=== PATIENT | female | born 1980 | race Caucasian/White ===

== ENCOUNTER 2017-01-30 13:27 | Emergency (ER) | payer OTHER ==
[2017-01-30 13:42] VITALS: BP 117/72
--- NOTE | 2017-01-30 14:30 | UC ---
Skin Complaint HPI - HPI Summary HPI Summary: MILDLY ITCHY RASH ON ARMS NECK AND TORSO. ONE POSSIBLE AREA ON LEFT LEG. HAS HAD RASH FOR ONE WEEK. HAS TRIED TO TREAT RASH WITH OTC HYDROCORTISONE WITHOUT DRAMATIC IMPROVEMENT. NO FEVER. NO INSECT BITES. NON TENDER. NO OTHER PEOPLE IN HOUSE HAVE RASHES. - History of Current Complaint Chief Complaint: UCRash Time Seen by Provider: 01/30/17 13:38 Stated Complaint: RASH Hx Obtained From: Patient Hx Last Menstrual Period: 01/06/17 Onset/Duration: Gradual Onset, Lasting Weeks, Still Present Skin Exposure Onset/Duration: Weeks Ago Onset Severity: Mild Current Severity: Mild Pain Intensity: 0 Pain Scale Used: 0-10 Numeric Location: Diffuse - BILAT ARMS NECK AND TORSO Character: Pruritus, Hives, Redness Aggravating: Touch Alleviating: Nothing Associated Signs & Symptoms: Positive: Rash. Negative: Fever, Chills, Hoarseness, Throat Tightening, Syncope, Drainage, Bruising, Tenderness, Red Streaks Related History: Possible Reaction to: Environmental Exposure - Allergy/Home Medications Allergies/Adverse Reactions: Allergies Allergy/AdvReac Type Severity Reaction Status Date / Time No Known Allergies Allergy Verified 01/30/17 13:42 Review of Systems Constitutional: Negative Skin: Rash Eyes: Negative ENT: Negative Respiratory: Negative Cardiovascular: Negative Gastrointestinal: Negative Genitourinary: Negative Motor: Negative Neurovascular: Negative Musculoskeletal: Negative Neurological: Negative Psychological: Negative All Other Systems Reviewed And Are Negative: Yes PMH/Surg Hx/FS Hx/Imm Hx Previously Healthy: Yes Respiratory History Of: Denies: Asthma Psychological History Of: Reports: Anxiety, Depression - Pt was on Cymbalta until she found out that she was - Surgical History Surgical History: Yes Surgery Procedure, Year, and Place: CYST REMOVED FROM NECK 2004 - Family History Known Family History: Negative: Blood Disorder - Social History Occupation: Employed Full-time Lives: With Family Alcohol Use: Rare Substance Use Type: None Smoking Status (MU): Never Smoked Tobacco Have You Smoked in the Last Year: No - Immunization History Most Recent Influenza Vaccination: 06/2014 Most Recent Tetanus Shot: 10/04/14 Most Recent Pneumonia Vaccination: never Physical Exam Triage Information Reviewed: Yes Appearance: Well-Appearing, No Pain Distress, Well-Nourished Vital Signs: Initial Vital Signs Temp 98.6 F 01/30/17 13:38 Pulse 74 01/30/17 13:38 Resp 16 01/30/17 13:38 BP 117/72 01/30/17 13:38 Pulse Ox 99 01/30/17 13:38 Vital Signs Reviewed: Yes Eye Exam: Normal ENT Exam: Normal ENT: Positive: Normal ENT inspection, Hearing grossly normal, Pharynx normal, TMs normal Dental Exam: Normal Neck exam: Normal Respiratory Exam: Normal Respiratory: Positive: Chest non-tender, Lungs clear, Normal breath sounds, No respiratory distress, No accessory muscle use Cardiovascular Exam: Normal Cardiovascular: Positive: RRR, No Murmur Abdominal Exam: Normal Abdomen Description: Positive: Nontender, No Organomegaly Musculoskeletal Exam: Normal Musculoskeletal: Positive: Strength Intact, ROM Intact Neurological Exam: Normal Psychological Exam: Normal Skin: Positive: rashes Course/Dx - Differential Diagnoses - Skin Complaint Differential Diagnoses: Allergic Reaction, Contact Dermatitis, Drug Rash, Eczema , Impetigo, Local Allergic Reaction, Scabies, Tinea - Diagnoses Provider Diagnoses: CONTACT DERMATITIS Discharge - Discharge Plan Condition: Stable Disposition: HOME Prescriptions: predniSONE TAB* [Deltasone TAB*] 10 mg PO DAILY #28 tab Patient Education Materials: Contact Dermatitis (ED) Referrals: Regi Alatorre NP [Primary Care Provider] -
== END 2017-01-30 14:16 | disposition home or self-care (01) ==
LOC: UCEAST 13:27
DX: L25.9 Unspecified contact dermatitis, unspecified cause (principal)
CPT/HCPCS: 99212; G0463

== ENCOUNTER 2017-08-24 14:09 | Emergency (ER) | payer OTHER ==
[2017-08-24 14:34] VITALS: BP 137/73
--- NOTE | 2017-08-24 14:59 | UC ---
Complaint Female HPI - HPI Summary HPI Summary: concerned she may have a tampon she cannot get out - History Of Current Complaint Chief Complaint: UCGU Stated Complaint: PERSONAL Time Seen by Provider: 08/24/17 14:57 Hx Obtained From: Patient Hx Last Menstrual Period: 01/06/17 ?: No Onset/Duration: Sudden Onset, Lasting Days - 2 Timing: Constant Severity Currently: None Aggravating Factor(s): Nothing Alleviating Factor(s): Nothing Associated Signs And Symptoms: Positive: Negative - Allergies/Home Medications Allergies/Adverse Reactions: Allergies Allergy/AdvReac Type Severity Reaction Status Date / Time No Known Allergies Allergy Verified 05/22/17 13:41 PMH/Surg Hx/FS Hx/Imm Hx Previously Healthy: No GI/ History: Other Other GI/ History: Crohns - Surgical History Surgical History: Yes Surgery Procedure, Year, and Place: CYST REMOVED FROM NECK 2004 - Family History Known Family History: Positive: None Negative: Blood Disorder - Social History Occupation: Employed Full-time Lives: With Family Alcohol Use: Weekly Substance Use Type: None Smoking Status (MU): Never Smoked Tobacco Have You Smoked in the Last Year: No - Immunization History Most Recent Influenza Vaccination: 06/2014 Most Recent Tetanus Shot: 10/04/14 Most Recent Pneumonia Vaccination: never Review of Systems Constitutional: Negative Skin: Negative Eyes: Negative ENT: Negative Respiratory: Negative Cardiovascular: Negative Gastrointestinal: Negative Genitourinary: Negative, Other - Concerned she may have retained tampon Motor: Negative Neurovascular: Negative Musculoskeletal: Negative Neurological: Negative Psychological: Negative Is Patient Immunocompromised?: No All Other Systems Reviewed And Are Negative: Yes Physical Exam Triage Information Reviewed: Yes Appearance: Well-Appearing, No Pain Distress, Well-Nourished Vital Signs: Initial Vital Signs Temp 98.4 F 08/24/17 14:27 Pulse 70 08/24/17 14:27 Resp 18 08/24/17 14:27 BP 137/73 08/24/17 14:27 Pulse Ox 100 08/24/17 14:27 Vital Signs Reviewed: Yes Eye Exam: Normal Eyes: Positive: Conjunctiva Clear ENT Exam: Normal ENT: Positive: Normal ENT inspection, Hearing grossly normal. Negative: Nasal drainage, Trismus, Muffled voice, Hoarse voice Dental Exam: Normal Neck exam: Normal Neck: Positive: 1 Respiratory Exam: Normal Respiratory: Positive: No respiratory distress, No accessory muscle use Cardiovascular Exam: Normal Cardiovascular: Positive: Brisk Capillary Refill Abdominal Exam: Normal Musculoskeletal Exam: Normal Musculoskeletal: Positive: Strength Intact, ROM Intact, No Edema Neurological Exam: Normal Neurological: Positive: Alert, Muscle Tone Normal Psychological Exam: Normal Skin Exam: Normal Re-Evaluation - Re-Evaluation First Eval Change: Unchanged - tolerated exam well no fb noted Complaint Female Dx - Course Course Of Treatment: follow with pcp prn - Differential Dx/Diagnosis Provider Diagnoses: normal vaginal exam Discharge - Discharge Plan Condition: Stable Disposition: HOME Referrals: Regi Alatorre NP [Primary Care Provider] - If Needed
== END 2017-08-24 15:16 | disposition home or self-care (01) ==
LOC: UCEAST 14:09
DX: Z04.8 Encounter for examination and observation for other specified reasons (principal)
CPT/HCPCS: 99212; G0463

== ENCOUNTER 2017-12-06 11:38 | Emergency (ER) | payer BC ==
[2017-12-06 11:47] VITALS: BP 138/98
--- NOTE | 2017-12-06 12:46 | UC ---
Corby Tavarez Jason, scribed for [facility] MD on 12/06/17 at 1223 . Complaint Female HPI - HPI Summary HPI Summary: In Room Note: This patient is a 37 year old F presenting to [facility] with a chief complaint of burning with urination since 3 days ago. The patient rates the pain 0/10 in severity. Symptoms aggravated by urination. Symptoms alleviated by nothing. Patient states that she last had a UTI a long time ago when she used to have them frequently. Physicians Note: Vital signs stable. Temperature is 99.7. BP 139/98. Patient is not on anti- hypertensive treatment. Pulse ox 100. Pt is positive for Chrons disease, depression, anxiety. Visit History: multiple visits for Chrons disease. Patient has also requested the removal of a ring. The ring was removed using a string method by a nurse. Nurses Note: pt c/o burning with void and frequency that started or thursday. pt is her also for a ring to be cut off. - History Of Current Complaint Chief Complaint: UCGU Stated Complaint: URINARY COMPLAINT, RING REMOVAL Time Seen by Provider: 12/06/17 12:08 Hx Obtained From: Patient Hx Last Menstrual Period: 11/12/17 Onset/Duration: Gradual Onset, Lasting Days - 3 days ago, Still Present Pain Intensity: 0 Pain Scale Used: 0-10 Numeric Character: Burning Aggravating Factor(s): Urination Alleviating Factor(s): Nothing - Allergies/Home Medications Allergies/Adverse Reactions: Allergies Allergy/AdvReac Type Severity Reaction Status Date / Time No Known Allergies Allergy Verified 12/06/17 11:47 Home Medications: Home Medications ALPRAZolam [Xanax] 0.25 mg PO 12/06/17 [History] Duloxetine HCl [Cymbalta] 80 mg PO 12/06/17 [History] PMH/Surg Hx/FS Hx/Imm Hx - Additional Past Medical History Additional PMH: Non contributory to present complaint. Previously Healthy: Yes GI/ History: Other Other GI/ History: Chron's disease Psychological History: Anxiety, Depression - Surgical History Surgical History: Yes Surgery Procedure, Year, and Place: CYST REMOVED FROM NECK 2004 - Family History Known Family History: Positive: Cardiac Disease - in mothers side, Other - cancer in dad's side Negative: Blood Disorder - Social History Occupation: Employed Full-time Alcohol Use: Daily Substance Use Type: Marijuana Substance Use Comment - Amount & Last Used: daily Smoking Status (MU): Never Smoked Tobacco Have You Smoked in the Last Year: No - Immunization History Most Recent Influenza Vaccination: 06/2014 Most Recent Tetanus Shot: 10/04/14 Most Recent Pneumonia Vaccination: never Review of Systems Constitutional: Negative - fever Genitourinary: Dysuria All Other Systems Reviewed And Are Negative: Yes Physical Exam - Summary Physical Exam Summary: Appearance: The patient is well-appearing, is in no pain distress, and is well- nourished. Eyes: Conjunctiva are clear. ENT: The hearing is grossly normal, the pharynx is normal, and the TMs are normal. There is no muffled or hoarse voice. Neck: The neck is supple and there is no lymphadenopathy. Respiratory: The chest is nontender. The lungs are clear, there are normal breath sounds, and there is no respiratory distress. Cardiovascular: Heart is regular rate and rhythm. There is no murmur. Abdomen: The abdomen is soft and nontender. There is no organomegaly. Bowel sounds: present Musculoskeletal: Strength is intact. The patient moves all extremities. Left fourth finger shows an indentation where the ring was removed. Following removal there is no limitation or abnormality in circulation, motor, or sensory. Neurological: The patient is alert. Psychological: The patient displays age appropriate behavior Skin: Negative for rashes Triage Information Reviewed: Yes Vital Signs: Initial Vital Signs Temp 99.7 F 12/06/17 11:44 Pulse 97 12/06/17 11:44 Resp 18 12/06/17 11:44 BP 138/98 12/06/17 11:44 Pulse Ox 100 12/06/17 11:44 Vital Signs Reviewed: Yes Complaint Female Dx - Course Course Of Treatment: Pt is a healthy 37 year old female with dysuria. I will treat the patient with macrodantin and pyridium. Diagnosis is a Urinary tract infection. Hypertensive BP reading (138/98); patient referred to PCP within 1 day - 4 weeks for follow up. Patient has been given an antibiotic because findings on physical examination and health history. The risks and benefits of antibiotic treatment have been discussed and patient has voiced understanding of these risks including the possibility of developing clostridium difficile enterocolitis. Medications have been included in the original chart and reviewed. - Differential Dx/Diagnosis Provider Diagnoses: Urinary Tract infection. Tight ring removed from left 4th finger by nurse. Discharge - Sign-Out/Discharge Documenting (check all that apply): Discharge - Discharge Plan Condition: Stable Disposition: [facility] Prescriptions: Nitrofurantoin Macrocrystals* [Macrodantin*] 100 mg PO BID 5 Days #10 cap MDD 2 Phenazopyridine TAB* [Pyridium TAB*] 200 mdi PO TID #6 tab Patient Education Materials: Phenazopyridine (By mouth), Urinary Tract Infection in Women (ED) Referrals: Regi Alatorre NP [Primary Care Provider] - Additional Instructions: Your blood pressure reading today was 139/98, indicating HYPERTENSION. Follow- up with your primary care provider within 4 weeks for blood pressure readings and further evaluation. PLEASE SEEK CARE AT THE EMERGENCY DEPARTMENT IF SYMPTOMS WORSEN OR IF NEW SYMPTOMS DEVELOP. FOLLOW UP WITH YOUR PRIMARY CARE PHYSICIAN WE DISCUSSED: 1. Your symptoms and urine test show a urinary tract infection. 2. Start Macrodantin, one pill, twice a day and Pyridium for discomfort. 3. Call us if you are not feeling better in 36 hours. 4. Re check at any time for increased pain, temperature, difficulty urinating. - Billing Disposition and Condition Condition: STABLE Disposition: EMTALA The documentation as recorded by the Corby elizondo Jason accurately reflects the service I personally performed and the decisions made by me, Daniel Whaley MD.
== END 2017-12-06 12:55 | disposition home or self-care (01) ==
LOC: UCEAST 11:38
DX: N39.0 Urinary tract infection, site not specified (principal); B96.20 Unspecified Escherichia coli [E. coli] as the cause of diseases classified elsewhere; Z87.440 Personal history of urinary (tract) infections; M79.89 Other specified soft tissue disorders; K50.90 Crohn's disease, unspecified, without complications; F41.9 Anxiety disorder, unspecified; F32.9 Major depressive disorder, single episode, unspecified
CPT/HCPCS: 81003; 87077; 87086; 87186; 99212; G0463

== ENCOUNTER 2019-08-19 09:45 | Observation (INO) | payer BC ==
--- NOTE | 2019-08-19 10:04 | ED ---
Skin Complaint - HPI Summary HPI Summary: This pt is a 39 y/o female presenting to [facility] c/o worsening pain to left buttock. Pt states her pain began about 1 week ago on her left buttock. She reports her pain has been progressively worsening over the last few days. Pt went to her PCP at [facility] yesterday where she was diagnosed with an abscess and was started on Clindamycin. Patient presents to triage with a temperature of 99.8F. She denies any other symptoms. She rates her pain 10/10 in severity and is tearful at bedside. PMHx: Crohn's disease. - History of Current Complaint Chief Complaint: EDRashSkinAbscess Time Seen by Provider: 08/19/19 09:58 Stated Complaint: ABSCESS PER PT Hx Obtained From: Patient Hx Last Menstrual Period: 11/12/17 Onset/Duration: Started Weeks Ago - 1, Still Present Skin Exposure Onset/Duration: Worse Since: - the last few days Timing: Lasting Days Current Severity: Severe Pain Intensity: 10 Pain Scale Used: 0-10 Numeric Skin Location: Other: - left buttock Character: Pain Aggravating Symptom(s): Nothing Alleviating Symptom(s): Nothing Associated Signs & Symptoms: Fever - low temp Related History: Other: - currently on Clindamycin - Allergy/Home Medications Allergies/Adverse Reactions: Allergies Allergy/AdvReac Type Severity Reaction Status Date / Time No Known Allergies Allergy Verified 01/31/19 09:43 Home Medications: Home Medications L.acidoph,Paracasei, B.lactis [Probiotic] 1 each PO DAILY 08/19/19 [History Confirmed 08/19/19] PMH/Surg Hx/FS Hx/Imm Hx Endocrine/Hematology History: Denies: Hx Diabetes Cardiovascular History: Denies: Hx Hypertension Respiratory History: Denies: Hx Asthma GI History: Reports: Hx Crohn's Disease History: Denies: Hx Renal Disease Sensory History: Reports: Hx Contacts or Glasses - WEARS GLASSES Opthamlomology History: Reports: Hx Contacts or Glasses - WEARS GLASSES Neurological History: Denies: Other Neuro Impairments/Disorders Psychiatric History: Reports: Hx Anxiety, Hx Depression - Pt was on Cymbalta until she found out that she was - Surgical History Surgery Procedure, Year, and Place: CYST REMOVED FROM NECK 2004 Hx Anesthesia Reactions: No Infectious Disease History: No Infectious Disease History: Denies: Traveled Outside the [place] in Last 30 Days - Family History Known Family History: Positive: Cardiac Disease - in mothers side, Other - cancer in dad's side Negative: Blood Disorder - Social History Alcohol Use: None Substance Use Type: Reports: None Substance Use Comment - Amount & Last Used: daily Smoking Status (MU): Never Smoked Tobacco Have You Smoked in the Last Year: No Review of Systems Positive: Fever - low temp Cardiovascular: Negative Respiratory: Negative Gastrointestinal: Negative Skin: Other - POSITIVE: abscess All Other Systems Reviewed And Are Negative: Yes Physical Exam - Summary Physical Exam Summary: GENERAL: Patient is a well-developed and nourished female who is lying comfortable in the stretcher. Patient is not in any acute respiratory distress. HEAD AND FACE: No signs of trauma. No ecchymosis, hematomas or skull depressions. No sinus tenderness. EYES: PERRLA, EOMI x 2, No injected conjunctiva, no nystagmus. EARS: Hearing grossly intact. Ear canals and tympanic membranes are within normal limits. MOUTH: Oropharynx within normal limits. NECK: Supple, trachea is midline, no adenopathy, no JVD, no carotid bruit, no c- spine tenderness, neck with full ROM. CHEST: Symmetric, no tenderness at palpation LUNGS: Clear to auscultation bilaterally. No wheezing or crackles. CVS: Regular rate and rhythm, S1 and S2 present, no murmurs or gallops appreciated. ABDOMEN: Soft, non-tender. No signs of distention. No rebound no guarding, and no masses palpated. Bowel sounds are normal. EXTREMITIES: FROM in all major joints, no edema, no cyanosis or clubbing. NEURO: Alert and oriented x 3. No acute neurological deficits. Speech is normal and follows commands. SKIN: Dry and warm. Induration and redness on the left gluteus, that is tender to palpation. Triage Information Reviewed: Yes Vital Signs On Initial Exam: Initial Vitals Temp Pulse Resp BP Pulse Ox 99.8 F 92 18 148/78 99 08/19/19 09:47 08/19/19 09:47 08/19/19 09:47 08/19/19 09:47 08/19/19 09:47 Vital Signs Reviewed: Yes Procedures - Sedation Patient Received Moderate/Deep Sedation with Procedure: No Diagnostics - Vital Signs Vital Signs Temp Pulse Resp BP Pulse Ox 08/19/19 09:47 99.8 F 92 18 148/78 99 - Laboratory Result Diagrams: 08/20/19 06:40 08/19/19 10:24 Lab Statement: Any lab studies that have been ordered have been reviewed, and results considered in the medical decision making process. - CT Pelvis CT CT Interpretation Completed By: Radiologist Summary of CT Findings: IMPRESSION: 4.5 cm AP by 3.3 cm transverse by 4.9 cm cephalocaudal peripherally enhancing abscess collection within the medial aspect of the LEFT ischionanal fat. The inflammatory process insinuates between the vagina anteriorly and the anal sphincter complex posteriorly. No definitive fistulous tract visualized to the rectum or anus. Dr. Valdivia has reviewed this report. Course/Dx - Course Assessment/Plan: This pt is a 39 y/o female presenting to [facility] c/o abscess on left buttocks. Pt states her pain began about 1 week ago on her buttocks. She reports her pain has been worsening over the last few days. Pt went to her PCP at [facility] yesterday and was started on Clindamycin. PMHx: Crohn's disease. Blood work without any significant abnormality except for WBCs of 17.2 , Neutrophils of 14.1, CRP 119, Lipase Is 90, Urinalysis Negative for UTI. In the ED course the patient was given fluids, Morphine for the pain and Zosyn for the infection. Pelvic CT IMPRESSION: #. 4.5 cm AP by 3.3 cm transverse by 4.9 cm cephalocaudal peripherally enhancing abscess collection within the medial aspect of the LEFT ischioanal fat. The inflammatory process insinuates between the vagina anteriorly and the anal sphincter complex posteriorly. No definitive fistulous tract visualized to the rectum or anus. Discussed the case with Dr. Randolph, surgeon, and after his assessment he will admit the patient and take her to the OR for incision and drainage of abscess. Patient is hemodynamically stable. - Diagnoses Provider Diagnoses: Abscess, Cellulitis - Physician Notifications Discussed Care Of Patient With: Damir Randolph Time Discussed With Above Provider: 12:21 Instructed by Provider To: Other - Discussed with Dr. Randolph, surgeon, who will come see the patient. Discharge ED - Sign-Out/Discharge Documenting (check all that apply): Patient Departure - Admit to [facility] imaging exams completed and their final reports reviewed: Yes - Discharge Plan Condition: Good Disposition: ADMITTED TO [facility] - Billing Disposition and Condition Condition: GOOD Disposition: Admitted to [facility] - Attestation Statements Document Initiated by Usman: Yes Documenting Scribe: Luz Elena Wilson Provider For Whom Usman is Documenting (Include Credential): Tyler Valdivia MD Scribe Attestation: Luz Elena Tavarez, scribed for Tyler Valdivia MD on 08/21/19 at 0919. Scribe Documentation Reviewed: Yes Provider Attestation: The documentation as recorded by the Luz Elena elizondo accurately reflects the service I personally performed and the decisions made by me, Tyler Valdivia MD Status of Scribe Document: Viewed
[2019-08-19] MEDS ORDERED: NS 0.9% 1000 ML** 1,000 ML IV ONE (10:06)
[2019-08-19] MEDS ORDERED: Morphine 4 MG/ML VIAL (1 ml) 4 MG/ML VIAL IV ONE ×2 (10:06→14:54)
[2019-08-19 10:36] LABS: ABS Basophils 0.1 10^3/ul (0-0.2); ABS Eosinophils 0.1 10^3/ul (0-0.6); ABS Lymphocytes 1.5 10^3/ul (1.0-4.8); ABS Monocytes 1.3 10^3/ul (0-0.8); ABS Neutrophils 14.1 10^3/ul (1.5-7.7); Eosinophil % 0.6 %; Hematocrit 36 % (35-47); Hemoglobin 12.2 g/dL (12.0-16.0); Lymphocyte % 8.8 %; Mean Corpuscular HGB Conc 34 g/dL (31-36); Mean Corpuscular Hemoglobin 33 pg (27-31); Mean Corpuscular Volume 99 fL (80-97); Mean Platelet Volume 7.7 fL (7.4-10.4); Platelet Count 259 10^3/uL (150-450); Red Blood Count 3.68 10^6 /uL (3.70-4.87); Red Cell Distribution Width 13 % (10-15); White Blood Count 17.2 10^3/uL (3.5-10.8)
[2019-08-19 11:00] LABS: ALT 8 U/L (7-52); AST 13 U/L (13-39); Albumin 3.5 g/dL (3.2-5.2); Alkaline Phosphatase 58 U/L (34-104); Anion Gap 6 mmol/L (2-11); BUN/Creatinine Ratio 10.9 (8-20); Blood Urea Nitrogen 7 mg/dL (6-24); C Reactive Protein 119.79 mg/L (<8.01); CO2 Carbon Dioxide 25 mmol/L (22-32); Calcium 9.4 mg/dL (8.6-10.3); Chloride 105 mmol/L (101-111); EGFR African American 126.3 (>60); EGFR Non-African American 104.4 (>60); Globulin 3.5 g/dL (2-4); Glucose 90 mg/dL (70-100); Potassium 3.8 mmol/L (3.5-5.0); Sodium 136 mmol/L (135-145)
[2019-08-19 11:06] LABS: HCG Pregnancy < 0.60 mIU/mL
[2019-08-19] MEDS ORDERED: Iohexol 300* (CONTRAST) 10 ML SDV IV ONE (11:23)
[2019-08-19 11:36] LABS: Urine Appearance Clear; Urine Bilirubin Negative (Negative); Urine Blood Negative (Negative); Urine Color Yellow; Urine Glucose Negative (Negative); Urine Ketones Trace (Negative); Urine Nitrite Negative (Negative); Urine Protein Negative (Negative); Urine Specific Gravity 1.008 (1.010-1.030); Urine Urobilinogen Negative (Negative)
[2019-08-19] MEDS ORDERED: Piperacillin/Tazobac ADVAN(*) 3.375 GM in NS 0.9% 100 ML* 100 ML IVPB ONE (11:40)
[2019-08-19] MEDS ORDERED: Ondansetron INJ* 2 MG/ML VIAL ONE (14:58)
[2019-08-19] MEDS ORDERED: Ondansetron INJ* 2 MG/ML VIAL IV ONE (15:00)
[2019-08-19] MEDS ORDERED: Ondansetron INJ* 2 MG/ML VIAL IV PRN (15:39)
--- NOTE | 2019-08-19 16:23 | HP ---
CC: Dr. Mari Gallegos; Dr. Falcon DATE OF ADMISSION: 08/19/2019. Patient seen in the emergency room on 08/19/2019. HISTORY OF PRESENT ILLNESS: Ms. Mae is a 39-year-old female with a history of Crohn's disease who presented to the emergency room with left buttock pain. The patient was started on antibiotics yesterday when she visited her primary care doctor. Her pain has worsened, and her evaluation in the emergency room, including CAT scan and labs, is suggestive of elevated white count and a left perianal abscess. These images were reviewed and my service was called. The patient describes slow onset a couple days ago, discomfort that continues to worsen. She has not seen her pot feeder, but is on medications for Crohn's disease. She saw her primary care doctor who started her on an antibiotic which I am not aware of at this time. PAST MEDICAL HISTORY: Ulcerative colitis. PAST SURGICAL HISTORY: No abdominal surgeries. MEDICATIONS: 1. Infliximab. 2. Cymbalta. 3. Probiotic. ALLERGIES: No known drug allergies. FAMILY HISTORY: Noncontributory. SOCIAL HISTORY: She is a nonsmoker. She works at [employer]. REVIEW OF SYSTEMS: No fevers. No chills. The patient has been run down. No complications with bowel movements. PHYSICAL EXAMINATION GENERAL: Alert and oriented times three, in mild distress. VITAL SIGNS: Temperature 99.8, blood pressure 140/85, respirations 16, O2 sat 96, heart rate of 89. HEENT: Normocephalic, atraumatic. Sclerae anicteric. Mucous membranes are moist. LUNGS: Clear to auscultation bilaterally. HEART: S1, S2. No murmurs appreciated. ABDOMEN: Soft, nondistended. EXTREMITIES: Within normal limits. RECTAL: Tenderness without erythema at the left buttock. Rectal exam not performed. This area of tenderness and mild induration without cellulitis is approximately 1 cm from the anal canal. LABORATORY DATA: White count 17.2. Metabolic panel also reviewed with elevated CRP. CAT scan was reviewed and was consistent with a fluid collection in the perianal area. IMPRESSION: Perianal abscess. PLAN/RECOMMENDATIONS: Incision and drainage of perirectal abscess. I outlined the details of the procedure, going over the benefits and alternatives. Initially we had hoped to do it here in the emergency room, but the staffing was not amenable to this. After discussion, I recommended the operating room as a back-up plan. The patient will go to the OR. She will need to be admitted due to lack of an operating room at this time. She has been admitted to my service in just to keep her ready and prepped for surgical intervention which will be an incision and drainage of perirectal abscess. Packing will be placed. She will remove this and likely follow-up in my office on Thursday. The patient's questions were answered and she will remain NPO on IV fluids and antibiotics. [id number]/[facility] #: [id number] CHELA
[2019-08-19] MEDS: Ciprofloxacin 400MG IVPREMIX(* 400 MG/200 ML BAG IVPB SCH (16:42)
[2019-08-19] MEDS: Lactated Ringers 1000 ML Bag* 1,000 ML IV SCH (16:46)
[2019-08-19] MEDS: HYDROmorphone INJ* 0.5 MG/0.5 ML SYRINGE IV SLOW PU PRN ×3 (18:00→21:56)
[2019-08-19] MEDS: metroNIDAZOLE IV 500 MG/100ML* 500 MG/100 ML BAG IVPB SCH (18:00)
[2019-08-19] MEDS ORDERED: Famotidine IV* 10 MG/ML 2 ML (20 mg) IV ONE (18:32)
[2019-08-19] MEDS ORDERED: Buffered Lidocaine 1% SYRIN* 1 ML/SYRINGE INTRADERM ONE (18:32)
[2019-08-19] MEDS ORDERED: Ondansetron ODT TAB* 4 MG PO ONE (18:32)
[2019-08-19] MEDS ORDERED: Dexamethasone TAB* 4 MG PO ONE (18:32)
[2019-08-19] MEDS ORDERED: oxyCODONE TAB* 5 MG TAB PO PRN (18:34)
[2019-08-19] MEDS ORDERED: Naloxone* 0.4 MG/ML 1 ML VIAL IV PRN (18:34)
[2019-08-19] MEDS ORDERED: Scopolamine 1.5 mg* PATCH TRANSDERM PRN (18:34)
[2019-08-19] MEDS ORDERED: HYDROmorphone INJ1* 1 MG/ML SYRINGE IV PRN (18:34)
[2019-08-19] MEDS ORDERED: DiMENhydriNATE IV* 50 MG/ML VIAL IV PUSH PRN (18:34)
[2019-08-19] MEDS ORDERED: PROCHLORPERAZINE INJ 5 MG/ML 2 ML VIAL IV PRN (18:34)
[2019-08-19] MEDS ORDERED: fentaNYL* 50 MCG/ML 2 ML VIAL (100 MCG VIAL) IV PRN (18:34)
[2019-08-19] MEDS ORDERED: Lactated Ringers 1000 ML Bag* 1,000 ML IV SCH (19:00)
[2019-08-19] MEDS ORDERED: Famotidine IV* 10 MG/ML 2 ML (20 mg) ONE (21:40)
[2019-08-19] MEDS ORDERED: Dexamethasone TAB* 4 MG ONE (21:40)
[2019-08-19] MEDS ORDERED: Ondansetron ODT TAB* 4 MG ONE (21:40)
[2019-08-19] MEDS ORDERED: HYDROmorphone INJ1* 1 MG/ML SYRINGE ONE (21:55)
[2019-08-19] MEDS ORDERED: Midazolam* 1 MG/ML 5 ML VIAL (5 MG) ONE (23:09)
[2019-08-19] MEDS ORDERED: KETAMINE HCL* 50 MG/ML 10 ML VIAL ONE (23:09)
[2019-08-19] MEDS ORDERED: fentaNYL* 50 MCG/ML 2 ML VIAL (100 MCG VIAL) ONE (23:09)
[2019-08-19] MEDS ORDERED: Gelfoam 12-7 ADSORBABL SPONGE* 1 EA SPONGE ONE (23:58)
[2019-08-19] MEDS ORDERED: Bupivacaine 0.25% EPI 200,000* 30 ML SDV ONE (23:58)
[2019-08-19] MEDS ORDERED: Gelfoam Sponge SIZE 100* SPONGE ONE (23:58)
--- NOTE | 2019-08-20 00:57 | OP ---
Operative Report - Blank - Operative Report Date of Operation: 08/20/19 Note: Pre-OP Diagnoses: Perirectal abscess Post-op Diagnosis: same Procedure: Incision and drainage of perirectal abscess Surgeon: Agustín Asst: none Anethesia: GA EBL: minimal IVF: crystalloid Specimen: abscess fluid for culture Drains: wound packed and left open
[2019-08-20] MEDS: HYDROmorphone INJ* 0.5 MG/0.5 ML SYRINGE IV SLOW PU PRN ×2 (01:31→03:03)
[2019-08-20] MEDS: Lactated Ringers 1000 ML Bag* 1,000 ML IV SCH (02:53)
[2019-08-20] MEDS: metroNIDAZOLE IV 500 MG/100ML* 500 MG/100 ML BAG IVPB SCH ×2 (02:53→09:13)
[2019-08-20] MEDS: Ciprofloxacin 400MG IVPREMIX(* 400 MG/200 ML BAG IVPB SCH (04:32)
--- NOTE | 2019-08-20 04:34 | OP ---
CC: Primary care doctor; [facility]; Dr. Falcon, Gastroenterology OPERATIVE REPORT: DATE OF OPERATION: 08/20/19 DATE OF : 84 SURGEON: Damir Randolph MD. SALES NEGOTIATOR: None. ANESTHESIOLOGIST: Dr. Blood. ANESTHESIA: General anesthesia with LMA. PRE-OP DIAGNOSIS: Perirectal abscess. POST-OP DIAGNOSIS: Perirectal abscess. OPERATIVE PROCEDURE: Incision and drainage of perirectal abscess. ESTIMATED BLOOD LOSS: Minimal. FLUIDS: Minimal crystalloid fluid given. SPECIMENS: Fluid for culture. Wound left open and packed with 0.5 inch iodoform packing. INDICATIONS: Ms. Mae is a 39-year-old female, diagnosed with perirectal abscess and I recommend ed incision and drainage. We talked about the possible complications of bleeding, infection, fistula formation. The patient agreed to the procedure. DESCRIPTION OF PROCEDURE: She was taken to the operating room, placed on the operating table in supi ne position. General anesthesia was induced. The patient had already received preoperative antibiot ics and she was admitted to the floor. She was placed in a lithotomy position and the perineum was pr epped in the standard fashion. She was draped and a time-out was performed. Digital rectal exam was performed. It was obvious the fluctuance was noted to be on the left and tremaine roximately 1 cm from the anal verge, a 1 cm incision was made. Copious pus was drained. The wound wa s extended inferior and superior to allow the surgeon's fingers. Loculations were broken up and cult ures were taken. An 0.5-inch iodoform packing was inserted, followed by sterile dressing. The patient tolerated the p rocedure well. [id number]/[facility] #: [id number]
[2019-08-20] MEDS ORDERED: oxyCODONE/Acetamin 5/325 MG* TAB PO PRN (04:49)
[2019-08-20 06:49] LABS: ABS Basophils 0.1 10^3/ul (0-0.2); ABS Lymphocytes 0.9 10^3/ul (1.0-4.8); ABS Monocytes 0.3 10^3/ul (0-0.8); ABS Neutrophils 15.8 10^3/ul (1.5-7.7); Hematocrit 33 % (35-47); Hemoglobin 11.2 g/dL (12.0-16.0); Lymphocyte % 5.2 %; Mean Corpuscular HGB Conc 34 g/dL (31-36); Mean Corpuscular Hemoglobin 33 pg (27-31); Mean Corpuscular Volume 98 fL (80-97); Mean Platelet Volume 7.5 fL (7.4-10.4); Nucleated Red Blood Cells % 0.1; Platelet Count 268 10^3/uL (150-450); Red Blood Count 3.38 10^6 /uL (3.70-4.87); Red Cell Distribution Width 13 % (10-15)
--- NOTE | 2019-08-20 11:20 | DS ---
CC: [facility]; Dr. Mari Gallegos DISCHARGE SUMMARY: DATE OF ADMISSION: DATE OF DISCHARGE: 08/20/19 HOSPITAL COURSE: Ms. Mae is a 39-year-old female with Crohn disease who was admitted through e emergency room yesterday with a diagnosis of perirectal abscess. Due to the minimal nursing staff in the ER and the OR staffing, the patient could not go until midnight of 08/20/19 for an incision an d drainage of perirectal abscess. Packing was applied and the patient was maintained on antibiotics and admitted in the overnight period due to the lateness of the procedure. On postoperative day 0, the patient was seen in the morning, doing well, tolerating diet, pain reliev ed, and was ready for discharge. On the day of discharge, physical exam was performed. Afebrile. Vital signs were stable. Lungs: C lear. Abdomen: Soft, nondistended, nontender. Perirectal area with minimal redness. Packing in pl [place]. Extremities within normal limits. PLAN: Discharged home with packing. The patient will remove this on Thursday and follow up in my offi on Thursday. She will follow with her primary care doctor as well as her printed circuit designer dee cooney her Crohn disease. The patient is aware that this may develop into an anal fistula, but we will continue to treat the ac [place] state at this point. Cultures are pending and consistent with staph, but sensitivities are pendi ng. She will go home on Cipro and Flagyl and no pain medication required. She will take ibuprofen a s needed. [id number]/[facility] #: [id number]
[2019-08-20 11:35] VITALS: BP 137/76
[2019-08-22] MEDS ORDERED: Scopolamine PATCH Remove* 1 NOTE MISC PATCH OFF ONE (18:34)
== END 2019-08-20 12:10 | disposition home or self-care (01) ==
LOC: ED 09:45 → SSU 15:39
PROVIDERS: ADMIT Surgery; ATTEND Surgery
DX: K61.1 Rectal abscess (principal); K50.90 Crohn's disease, unspecified, without complications; Z79.899 Other long term (current) drug therapy
CPT/HCPCS: 36415; 72193; 80053; 81003; 81025; 83605; 83690; 84702; 85025; 86140; 87040; 87070; 87073; 87076; 87077; 87185; 87186; 87205; 87640; 87641; 96361; 96365; 96366; 96367; 96375; 96376; 99283; A9270-GY; G0378; J0744; J1170; J2250; J2270; J2405; J2543; J3010; J8540; Q9967

== ENCOUNTER 2019-08-27 09:03 | Emergency (ER) | payer BC ==
--- OUTSIDE RECORDS SUMMARY | 2019-08-27 09:28 | XMS REPORT | Continuity of Care Document ---
:1980 External Reference #:[id number] Author Name Chika Dawkins NP (transmitted by agent of provider Henrietta Anguiano) Address [address] [place] [address] Care Team Providers Name Role Phone Mari Gallegos MD - Internal Care Team Information Metallurgist Process Medicine Problems Description No Information Available Social History Type Date Description Comments Sex Unknown ETOH Use Occasionally consumes alcohol Tobacco Use Start: Unknown Patient has never smoked Recreational Drug Use Current Drug User Occ. Marijuana Smoking Status Reviewed: 08/25/19 Patient has never smoked Exercise Type/Frequency Does not exercise Allergies, Adverse Reactions, Alerts Description No Known Drug Allergies Medications Active Medications SIG Qnty Indications Ordering Provider Date Probiotic 1 by mouth every Unknown Capsules day Ciprofloxacin HCL Take 1 Tablet By Unknown 500mg Mouth Twice Tablets Daily Metronidazole Take 1 Tablet By Unknown 500mg Tablets Mouth Three Times Daily Duloxetine HCL 2 Tabs By Mouth Mari Gallegos 60mg Caps DR Nadia Melendrez MD Part Infliximab every 8 weeks Unknown Immunizations Description No Information Available Vital Signs Date Vital Result Comment 08/25/2019 10:31am Height 64 inches 5'4" Weight 131.00 lb Heart Rate 60 /min BP Systolic Sitting 120 mmHg BP Diastolic Sitting 80 mmHg Respiratory Rate 16 /min Body Temperature 99.1 F BMI (Body Mass Index) 22.5 kg/m2 08/22/2019 11:07am Height 64 inches 5'4" Weight 131.00 lb Heart Rate 72 /min BP Systolic Sitting 118 mmHg BP Diastolic Sitting 84 mmHg Respiratory Rate 12 /min Body Temperature 97.6 F BMI (Body Mass Index) 22.5 kg/m2 Results Description No Information Available Procedures Description No Information Available Medical Devices Description No Information Available Encounters Type Date Location Provider Dx Diagnosis Office Visit 06/29/2019 [facility] Dermatology Meghan Romeo, L02.821 Furuncle of head 8:15a [any part, except face] D22.5 Melanocytic nevi of trunk L30.9 Dermatitis, unspecified Z92.25 Personal history of immunosupression therapy Assessments Date Code Description Provider 08/25/2019 K61.1 Rectal abscess Chika Dawkins NP 08/25/2019 Z48.01 Encounter for change or removal of Chika Dawkins NP surgical wound dressing 08/22/2019 K61.1 Rectal abscess Damir Randolph MD, FACS 06/29/2019 L02.821 Furuncle of head [any part, except Meghan Romeo MD face] 06/29/2019 D22.5 Melanocytic nevi of trunk Meghan Romeo MD 06/29/2019 L30.9 Dermatitis, unspecified Meghan Romeo MD 06/29/2019 Z92.25 Personal history of immunosupression Meghan Romeo MD therapy Plan of Treatment Future Appointment(s):09/01/2019 8:30 am - Damir Randolph MD, FACS at [facility]08/29/2019 9:00 am - Chika Dawkins NP at [facility]06/29/2020 8:15 am - Meghan Romeo MD at [facility] Txzteeqsvwn27/12/2019 - Chika Dawkins NPK61.1 Rectal abscessFollow up: 08/29 AND 09/01,REPACK PERIRECTAL [id number] Encounter for change or removal of surgical wound dressing Functional Status Description No Information Available Mental Status Description No Information Available Referrals Description No Information Available
[2019-08-27 09:42] VITALS: BP 0/0
--- NOTE | 2019-08-27 16:23 | ED ---
Skin Complaint - HPI Summary HPI Summary: This patient is a 39-year-old female presenting to the ED with concern for loss of packing in perirectal abscess. Patient states approximately 2 weeks ago she developed pain into her left buttock. She states this pain had been worsening and she was subsequently seen in the ED as well as taken to surgery for a perirectal abscess. She states last evening the packing came out and she was concerned this would not heal well. She states she called surgery and they told her to come to ED for evaluation. PMHx: Crohn's disease. - History of Current Complaint Chief Complaint: EDRashSkinAbscess Time Seen by Provider: 08/27/19 09:20 Stated Complaint: ABCESS Hx Obtained From: Patient Hx Last Menstrual Period: 11/12/17 Onset/Duration: Started Hours Ago Skin Exposure Onset/Duration: Hours Ago Timing: Constant Onset Severity: Mild Current Severity: None Pain Intensity: 0 Pain Scale Used: 0-10 Numeric Skin Location: Discrete - left buttocks area Aggravating Symptom(s): Nothing Alleviating Symptom(s): Nothing Associated Signs & Symptoms: Negative - Additional Pertinent History Primary Care Physician: SHONDA - Allergy/Home Medications Allergies/Adverse Reactions: Allergies Allergy/AdvReac Type Severity Reaction Status Date / Time No Known Allergies Allergy Verified 08/27/19 09:08 PMH/Surg Hx/FS Hx/Imm Hx Previously Healthy: Yes Endocrine/Hematology History: Denies: Hx Diabetes Cardiovascular History: Denies: Hx Hypertension Respiratory History: Denies: Hx Asthma GI History: Reports: Hx Crohn's Disease History: Denies: Hx Renal Disease Sensory History: Reports: Hx Contacts or Glasses - WEARS GLASSES Denies: Hx Hearing Aid, Hx Hearing Problem Opthamlomology History: Reports: Hx Contacts or Glasses - WEARS GLASSES Neurological History: Denies: Other Neuro Impairments/Disorders Psychiatric History: Reports: Hx Anxiety, Hx Depression - Pt was on Cymbalta until she found out that she was - Surgical History Surgery Procedure, Year, and Place: CYST REMOVED FROM NECK 2004 Hx Anesthesia Reactions: No - Immunization History Hx Pertussis Vaccination: No Immunizations Up to Date: Yes Infectious Disease History: No Infectious Disease History: Denies: Traveled Outside the [place] in Last 30 Days - Family History Known Family History: Positive: None, Cardiac Disease - in mothers side, Other - cancer in dad's side Negative: Blood Disorder - Social History Occupation: Employed Full-time Lives: With Family Alcohol Use: None Hx Substance Use: No Substance Use Type: Reports: None Substance Use Comment - Amount & Last Used: daily Hx Tobacco Use: No Smoking Status (MU): Never Smoked Tobacco Have You Smoked in the Last Year: No Review of Systems Negative: Fever, Chills, Fatigue, Skin Diaphoresis Negative: Palpitations, Chest Pain Negative: Shortness Of Breath, Cough Genitourinary: Negative Positive: no symptoms reported, see HPI Negative: Arthralgia, Myalgia Skin: Negative Positive: Other - perirectal abscess Neurological: Negative All Other Systems Reviewed And Are Negative: Yes Physical Exam Triage Information Reviewed: Yes Vital Signs On Initial Exam: Initial Vitals Temp Pulse Resp BP Pulse Ox 98.7 F 94 16 141/113 99 08/27/19 09:06 08/27/19 09:06 08/27/19 09:06 08/27/19 09:06 08/27/19 09:06 Vital Signs Reviewed: Yes Appearance: Positive: Well-Appearing, Well-Nourished Skin: Positive: Warm, Skin Color Reflects Adequate Perfusion Head/Face: Positive: Normal Head/Face Inspection Eyes: Positive: EOMI, VIRAJ Neck: Positive: Supple Cardiovascular: Positive: Normal Musculoskeletal: Positive: Strength/ROM Intact Neurological: Positive: Speech Normal Psychiatric: Positive: Affect/Mood Appropriate AVPU Assessment: Alert Procedures - Sedation Patient Received Moderate/Deep Sedation with Procedure: No Diagnostics - Vital Signs Vital Signs Temp Pulse Resp BP Pulse Ox 08/27/19 09:22 0 F 0 19 0/0 0 08/27/19 09:06 98.7 F 94 16 141/113 99 - Laboratory Lab Statement: Any lab studies that have been ordered have been reviewed, and results considered in the medical decision making process. Course/Dx - Course Course Of Treatment: This patient was evaluated by surgery, Dr. Ribera in the ED and repacked. Pt denies any worsening pain or fevers. She will be DC'd with repacking and perirectal abscess dx. - Differential Diagnoses - Skin Complaint Differential Diagnoses: Abscess - Diagnoses Provider Diagnoses: Wound check, abscess Discharge ED - Sign-Out/Discharge Documenting (check all that apply): Patient Departure - Discharge Plan Condition: Stable Disposition: HOME Patient Education Materials: Abscess (ED) Referrals: Mari Gallegos MD [Primary Care Provider] - Additional Instructions: Return to ED with new or worsening symptoms. - Billing Disposition and Condition Condition: STABLE Disposition: Home
--- NOTE | 2019-08-27 17:03 | PN ---
Progress Note - Progress Note Date of Service: 08/27/19 Note: Seen in the ED due to concern that her packing had falled out and that it needed to be replaced. She noted less drainage today than yesterday. Somewhat purulent by her description. PE: Vital Signs Temp 0 F 08/27/19 09:22 Pulse 0 08/27/19 09:22 Resp 19 08/27/19 09:22 BP 0/0 08/27/19 09:22 Pulse Ox 0 08/27/19 09:22 Intake & Output 08/26/19 08/27/19 08/27/19 18:59 06:59 18:59 Weight 140 lb Gen: NAD Anorectal: open wound, 1 cm left, perianal skin. No erythema. Granulation noted. No drainage noted. Non tender and no mass or fluctuance. Probed with swab to 2-3 cm and no drainage encountered. Irrigated with 10 ml NS. A/P: s/p I&D of perirectal abscess. Healing well. No need for additional packing. Sitz baths. F/u in office as planned.
== END 2019-08-27 09:22 | disposition home or self-care (01) ==
LOC: ED 09:03
DX: L02.31 Cutaneous abscess of buttock (principal); K50.90 Crohn's disease, unspecified, without complications; F41.9 Anxiety disorder, unspecified; F32.9 Major depressive disorder, single episode, unspecified
CPT/HCPCS: 99282